=== PATIENT | male | born 1945 | race Caucasian/White ===

== ENCOUNTER 2017-06-03 15:31 | Emergency (ER) | payer OTHER ==
[~2017-06-03] VITALS: Ht 170.2 cm; Wt 104.6 kg
[~2017-06-03 15:31] MED LIST: ASPIR-TRIN325 M1 PO; CRESTOR20 MG PO; DIABETA,MICRON2.5 MG PO; DOXYCYCLINE HY100 MG PO; GLUCOPHAGE1000 MG PO; LEVEMIR FL100 UNIT/1 SC; LISINOPRIL40 MG PO
[2017-06-03] MEDS ORDERED: MOTRIN800 MG PO (18:56)
[2017-06-03] MEDS ORDERED: FLEXERIL10 MG PO (18:56)
[2017-06-03 19:15] VITALS: BP 99/63
== END 2017-06-03 19:22 | disposition home or self-care (01) ==
LOC: EXP 15:31 → EME 15:31 → EXP 19:22
DX: S06.0X0A Concussion without loss of consciousness, initial encounter (principal); R52 Pain, unspecified; E11.9 Type 2 diabetes mellitus without complications; V89.2XXA Person injured in unspecified motor-vehicle accident, traffic, initial encounter; F17.200 Nicotine dependence, unspecified, uncomplicated; Z79.84 Long term (current) use of oral hypoglycemic drugs
CPT/HCPCS: 70450; 85810 90; 99281; 99284

== ENCOUNTER 2018-06-28 12:12 | Emergency (ER) | payer OTHER ==
[~2018-06-28] VITALS: Ht 170.2 cm; Wt 104.7 kg
[~2018-06-28 12:12] MED LIST changes: +FLEXERIL10 MG PO; +MOTRIN800 MG PO
[2018-06-28 12:30] VITALS: BP 136/97
[2018-06-28] MEDS ORDERED: OFLOXACIN10 M1 LEFT EYE (12:50)
== END 2018-06-28 12:59 | disposition home or self-care (01) ==
LOC: EME 12:12
DX: H10.9 Unspecified conjunctivitis (principal); H26.9 Unspecified cataract; E11.9 Type 2 diabetes mellitus without complications; Z79.4 Long term (current) use of insulin; F17.200 Nicotine dependence, unspecified, uncomplicated
CPT/HCPCS: 99281; 99283